=== PATIENT | female | born 1945 | race Caucasian/White ===

== ENCOUNTER 2021-03-17 14:00 | Outpatient (CLI) | payer MEDICARE, BC ==
[2021-03-18 18:02] LABS: SARS-CoV-2 PCR by NAA DETECTED (NotDetected)
== END 2021-03-17 14:01 | disposition home or self-care (01) ==
LOC: CSHLAB 14:00
PROVIDERS: ATTEND Family Medicine
DX: U07.1 COVID-19 (principal)
CPT/HCPCS: U0003; U0005

== ENCOUNTER 2021-03-20 13:34 | Outpatient (CLI) | payer MEDICARE, BC | END 2021-03-20 13:35 | disposition home or self-care (01) | LOC: CSHRAD 13:34 | PROVIDERS: ATTEND Family Medicine | DX: R13.10 Dysphagia, unspecified (principal); J44.9 Chronic obstructive pulmonary disease, unspecified; K21.9 Gastro-esophageal reflux disease without esophagitis | CPT/HCPCS: 74220 ==

== ENCOUNTER 2023-04-17 12:27 | Emergency (ER) | payer MEDICARE, BC ==
[2023-04-17 13:14] LABS: #Basophils 0.1 10x3/uL (0.0-0.2); #Monocytes 0.9 10x3/uL (0.0-1.1); #Neutrophils 9.6 10x3/uL (1.5-8.4); %Basophils 0.7 % (0.0-2.0); %Eosinophils 0.3 % (0.0-6.0); %Lymphocytes 17.2 % (18.0-47.0); %Monocytes 6.7 % (0.0-10.0); %Neutrophils 71.4 % (40.0-75.0); Hematocrit 33.4 % (34.9-44.5); Hemoglobin 10.3 g/dL (12.0-15.5); Mean Corpuscular HGB CONC 30.8 g/dL (32.0-36.0); Mean Corpuscular Hemoglobin 28.8 pg (27.0-33.0); Mean Corpuscular Volume 93.3 fl (81.6-98.3); Mean Platelet Volume 10.1 fl (7.4-10.4); Platelet Count 241 10x3/uL (150-450); RBC Distribution Width 17.3 % (11.5-14.5); Red Blood Cell (RBC) Count 3.58 10x6/uL (3.90-5.03); White Blood Cell (WBC) Count 13.4 10x3/uL (3.5-10.5)
[2023-04-17 13:17] LABS: Bilirubin Neg (Negative); Blood, Urine Negative (Negative); Clarity Clear (Clear); Glucose, Urine (Dipstick) >=1000 mg/dL (Negative); Ketone, Urine Negative (Negative); Leukocyte Negative (Negative); Nitrite Negative (Negative); Protein, Urine (Dipstick) Negative (Neg-Trace); Urobilinogen Normal mg/dL (Less than 2)
[2023-04-17 13:24] LABS: ALT (SGPT) 36 U/L (8-55); AST (SGOT) 18 U/L (5-34); Albumin 3.7 g/dL (3.4-4.8); Alkaline Phosphatase 49 U/L (40-110); Anion Gap 18 mmol/L (10-20); BUN (Urea Nitrogen) 13 mg/dL (9.8-20.1); Bilirubin, Total 0.2 mg/dL (0.2-1.2); Calc. Creatinine Clearance 0 mL/min (70-130); Calcium 10.4 mg/dL (7.8-10.44); Carbon Dioxide 21 mmol/L (23-31); Chloride 103 mmol/L (98-107); Estimated GFR 58; Globulin 2.5 g/dL (2.4-3.5); Glucose 156 mg/dL (83-110); Potassium 4.6 mmol/L (3.5-5.1); Protein, Total 6.2 g/dL (5.8-8.1); Sodium 137 mmol/L (136-145)
[2023-04-17 13:25] LABS: Troponin I 0.026 ng/mL (< 0.028)
[2023-04-17] MEDS ORDERED: Ondansetron PF 4 MG/2 ML Vial ONE (13:27)
[2023-04-17 13:38] LABS: SARS-CoV-2 NAA Rapid Test Not Detected (NotDetected)
[2023-04-17 13:38] LABS: Bacteria/HPF Rare-Few HPF (None Seen); CAUTI Indications for Culture Pelvic or flank pain; RBC/HPF 0-3 HPF (0-3); Squamous Epithelial 0-3 HPF (0-3); WBC/HPF 0-3 HPF (0-3)
[2023-04-17 13:41] LABS: Urine Culture Reflex No No
== END 2023-04-17 15:12 | disposition home or self-care (01) ==
LOC: CSHERS 12:27
DX: B34.9 Viral infection, unspecified (principal); I11.0 Hypertensive heart disease with heart failure; I50.9 Heart failure, unspecified
CPT/HCPCS: 0240U; 71045; 80053; 81001; 83605; 83880; 84484; 85025; 86140; 87040; 87086; 93005; 36415; 51701; 96374; J2405

== ENCOUNTER 2023-05-12 19:35 | Inpatient (IN) | payer MEDICARE, BC ==
[2023-05-12] MEDS ORDERED: Morphine 4 MG/ML VIAL ONE (19:56)
[2023-05-12] MEDS ORDERED: Ondansetron PF 4 MG/2 ML Vial ONE (19:57)
[2023-05-12 20:02] LABS: #Basophils 0.1 10x3/uL (0.0-0.2); #Monocytes 1.5 10x3/uL (0.0-1.1); #Neutrophils 13.1 10x3/uL (1.5-8.4); %Basophils 0.5 % (0.0-2.0); %Eosinophils 0.2 % (0.0-6.0); %Lymphocytes 11.6 % (18.0-47.0); %Monocytes 8.4 % (0.0-10.0); %Neutrophils 75.7 % (40.0-75.0); Hematocrit 34.6 % (34.9-44.5); Hemoglobin 11.3 g/dL (12.0-15.5); Mean Corpuscular HGB CONC 32.7 g/dL (32.0-36.0); Mean Corpuscular Hemoglobin 28.5 pg (27.0-33.0); Mean Corpuscular Volume 87.2 fl (81.6-98.3); Mean Platelet Volume 10.8 fl (7.4-10.4); Platelet Count 276 10x3/uL (150-450); RBC Distribution Width 16.3 % (11.5-14.5); Red Blood Cell (RBC) Count 3.97 10x6/uL (3.90-5.03); White Blood Cell (WBC) Count 17.3 10x3/uL (3.5-10.5)
[2023-05-12 20:20] LABS: ALT (SGPT) 111 U/L (8-55); AST (SGOT) 31 U/L (5-34); Albumin 3.9 g/dL (3.4-4.8); Alkaline Phosphatase 55 U/L (40-110); Anion Gap 19 mmol/L (10-20); BUN (Urea Nitrogen) 20 mg/dL (9.8-20.1); Bilirubin, Total 0.5 mg/dL (0.2-1.2); Calc. Creatinine Clearance 0 mL/min (70-130); Calcium 9.3 mg/dL (7.8-10.44); Carbon Dioxide 28 mmol/L (23-31); Chloride 88 mmol/L (98-107); Estimated GFR 61; Globulin 2.3 g/dL (2.4-3.5); Glucose 209 mg/dL (83-110); Lipase 24 U/L (8-78); Potassium 3.2 mmol/L (3.5-5.1); Protein, Total 6.2 g/dL (5.8-8.1); Sodium 132 mmol/L (136-145)
[2023-05-12 20:26] LABS: Troponin I 0.062 ng/mL (< 0.028)
[2023-05-12 20:46] LABS: SARS-CoV-2 NAA Rapid Test DETECTED (NotDetected)
[2023-05-12 22:07] LABS: Bilirubin Neg (Negative); Blood, Urine 25 (Negative); Clarity Clear (Clear); Glucose, Urine (Dipstick) 50 mg/dL (Negative); Ketone, Urine 5 mg/dL (Negative); Leukocyte Negative (Negative); Nitrite Negative (Negative); Protein, Urine (Dipstick) 30 mg/dl (Neg-Trace); Specific Gravity, Urine 1.015 (1.005-1.030); Urobilinogen Normal mg/dL (Less than 2)
[2023-05-12] MEDS ORDERED: cefTRIAXone (ROCEPHIN) 2 GM VIAL ONE (22:10)
[2023-05-12 22:28] LABS: Bacteria/HPF 1+ HPF (None Seen); CAUTI Indications for Culture Pelvic or flank pain; RBC/HPF 0-3 HPF (0-3); WBC/HPF 0-3 HPF (0-3)
[2023-05-12 22:30] LABS: Urine Culture Reflex No No
[2023-05-12] MEDS ORDERED: Communication Order-Pharmacy FS PRN (22:32)
[2023-05-12] MEDS ORDERED: Acetaminophen 325 MG TAB PO PRN (22:40)
[2023-05-12] MEDS ORDERED: Piperacillin/Tazobactam 3.375 GM in Sodium Chloride 0.9% 100 ML IVPB SCH (22:45)
[2023-05-12] MEDS ORDERED: Glucagon 1 MG/ML KIT IM PRN (22:55)
[2023-05-12] MEDS ORDERED: Dextrose 5% in Water 1,000 ML IV PRN (22:55)
[2023-05-12] MEDS ORDERED: HumaLOG 300 UNITS/3 ML VIAL SC PRN (22:55)
[2023-05-12] MEDS ORDERED: Dextrose 50% Abboject 50 ML SYRINGE SLOW IVP PRN (22:55)
[2023-05-12] MEDS ORDERED: Ipratropium/Albuterol 3 ML NEB NEB PRN (22:56)
[2023-05-12] MEDS: Sodium Chloride 0.9% 1,000 ML IV SCH (23:00)
[2023-05-12 23:14] LABS: Lactic Acid 2.6 mmol/L (0.5-2.2)
[2023-05-12] MEDS ORDERED: Arformoterol 15 MCG/2 ML NEB NEB SCH (23:30)
[2023-05-12] MEDS: Montelukast Sodium 10 mg Tablet PO SCH (23:51)
[2023-05-12] MEDS ORDERED: Potassium Chloride 20 MEQ TAB PO SCH (23:59)
[2023-05-12] MEDS ORDERED: Cefepime 2 GM in Sodium Chloride 0.9% 100 ML IVPB SCH (23:59)
[2023-05-12] MEDS ORDERED: VANCOMYCIN 1.75 GM/350 ML BAG 1.75 GM in Premix 1 BAG IVPB SCH (23:59)
[2023-05-13 00:07] LABS: Troponin I 0.054 ng/mL (< 0.028)
[2023-05-13 00:10] LABS: Legionella Urinary Ag Negative (Negative); Strep pneumo Urine Ag NEGATIVE (NEGATIVE)
[2023-05-13] MEDS: Cefepime 2 GM in Sodium Chloride 0.9% 100 ML IVPB SCH ×2 (00:21→12:32)
[2023-05-13] MEDS: Benzocaine/Menthol 1 LOZ LOZ PO PRN ×3 (00:24→16:19)
[2023-05-13] MEDS ORDERED: Ondansetron PF 4 MG/2 ML Vial IVP SCH (01:00)
[2023-05-13] MEDS ORDERED: Milk Of Magnesia 30 ML UDCUP PO SCH (01:00)
[2023-05-13 05:01] LABS: #Basophils 0.1 10x3/uL (0.0-0.2); #Monocytes 1.2 10x3/uL (0.0-1.1); %Basophils 0.6 % (0.0-2.0); %Eosinophils 0.2 % (0.0-6.0); %Lymphocytes 11.3 % (18.0-47.0); %Monocytes 9.4 % (0.0-10.0); %Neutrophils 74.4 % (40.0-75.0); Hematocrit 30.3 % (34.9-44.5); Hemoglobin 9.4 g/dL (12.0-15.5); Mean Corpuscular Hemoglobin 27.9 pg (27.0-33.0); Mean Corpuscular Volume 89.9 fl (81.6-98.3); Mean Platelet Volume 11.1 fl (7.4-10.4); Platelet Count 237 10x3/uL (150-450); RBC Distribution Width 16.6 % (11.5-14.5); Red Blood Cell (RBC) Count 3.37 10x6/uL (3.90-5.03); White Blood Cell (WBC) Count 12.2 10x3/uL (3.5-10.5)
[2023-05-13 05:18] LABS: Anion Gap 13 mmol/L (10-20); BUN (Urea Nitrogen) 14 mg/dL (9.8-20.1); Calc. Creatinine Clearance 94 mL/min (70-130); Carbon Dioxide 27 mmol/L (23-31); Chloride 97 mmol/L (98-107); Estimated GFR 88; Glucose 150 mg/dL (83-110); Potassium 2.9 mmol/L (3.5-5.1); Sodium 134 mmol/L (136-145)
[2023-05-13 05:29] LABS: Troponin I 0.062 ng/mL (< 0.028)
[2023-05-13] MEDS ORDERED: Arformoterol 15 MCG/2 ML NEB NEB SCH (06:30)
[2023-05-13] MEDS ORDERED: Budesonide 0.5 MG/2 ML NEB INH SCH (06:30)
[2023-05-13] MEDS ORDERED: Ondansetron PF 4 MG/2 ML Vial IVP PRN (08:10)
[2023-05-13] MEDS: Potassium Chloride 20 MEQ in Premix 1 BAG IVPB SCH ×2 (08:22→10:42)
[2023-05-13] MEDS ORDERED: Potassium Chloride 20 MEQ TAB PO SCH ×2 (09:30→17:00)
[2023-05-13] MEDS: Nystatin 500,000 UNITS/5 ML UDCUP SSW SCH ×4 (09:41→20:19)
[2023-05-13] MEDS: Gabapentin 100 MG CAP PO SCH ×3 (09:43→20:18)
[2023-05-13] MEDS: Amlodipine 10 MG TAB PO SCH (09:43)
[2023-05-13] MEDS: Metoprolol Tartrate 25 MG TAB PO SCH ×2 (09:44→20:40)
[2023-05-13] MEDS: metFORMIN 500 MG TAB PO SCH ×2 (09:44→16:18)
[2023-05-13] MEDS: Enoxaparin 40 MG (0.4 mL) SYRINGE SC SCH (09:44)
[2023-05-13] MEDS: Escitalopram Oxalate 10 mg Tablet PO SCH (09:44)
[2023-05-13] MEDS: Lantus 1000 UNITS/10 ML VIAL SC SCH (09:46)
[2023-05-13] MEDS ORDERED: Promethazine HCl 12.5 MG, Admixture Fee 1 EACH in Sodium Chloride 0.9% 50 ML IVPB PRN (11:58)
[2023-05-13] MEDS: NS 0.9% w/ 40 MEQ KCL 1,000 ML IV SCH (12:33)
[2023-05-13] MEDS: Sodium Chloride 0.9% 1,000 ML IV SCH (12:34)
[2023-05-13] MEDS ORDERED: Docusate 100 MG CAP PO PRN (13:01)
[2023-05-13] MEDS: Mometasone/Formoterol 60 PUFF AER INH SCH (19:40)
[2023-05-13] MEDS: Ventolin HFA Inhaler 60 PUFF INHALER INH PRN (19:40)
[2023-05-13] MEDS: Famotidine 20 MG TAB PO SCH (20:19)
[2023-05-13] MEDS: valACYclovir 500 MG TAB PO SCH (23:00)
[2023-05-13] MEDS ORDERED: Vancomycin 1.5 GRAM/300 ML BAG 1.5 GM in Premix 1 BAG IVPB SCH (23:59)
[2023-05-14] MEDS: Montelukast Sodium 10 mg Tablet PO SCH ×2 (01:07→22:56)
[2023-05-14 04:36] LABS: #Monocytes 1.1 10x3/uL (0.0-1.1); #Neutrophils 6.4 10x3/uL (1.5-8.4); %Basophils 0.4 % (0.0-2.0); %Eosinophils 0.4 % (0.0-6.0); %Monocytes 11.5 % (0.0-10.0); %Neutrophils 67.9 % (40.0-75.0); Hematocrit 25.6 % (34.9-44.5); Hemoglobin 8.2 g/dL (12.0-15.5); Mean Corpuscular Hemoglobin 29.2 pg (27.0-33.0); Mean Corpuscular Volume 91.1 fl (81.6-98.3); Mean Platelet Volume 10.7 fl (7.4-10.4); Platelet Count 215 10x3/uL (150-450); Red Blood Cell (RBC) Count 2.81 10x6/uL (3.90-5.03); White Blood Cell (WBC) Count 9.4 10x3/uL (3.5-10.5)
[2023-05-14 04:49] LABS: ALT (SGPT) 65 U/L (8-55); AST (SGOT) 19 U/L (5-34); Albumin 2.8 g/dL (3.4-4.8); Alkaline Phosphatase 81 U/L (40-110); Anion Gap 11 mmol/L (10-20); BUN (Urea Nitrogen) 8 mg/dL (9.8-20.1); Bilirubin, Total 0.3 mg/dL (0.2-1.2); Calc. Creatinine Clearance 103 mL/min (70-130); Calcium 8.2 mg/dL (7.8-10.44); Carbon Dioxide 23 mmol/L (23-31); Chloride 106 mmol/L (98-107); Estimated GFR 90; Globulin 2.1 g/dL (2.4-3.5); Glucose 111 mg/dL (83-110); Potassium 3.4 mmol/L (3.5-5.1); Protein, Total 4.9 g/dL (5.8-8.1); Sodium 137 mmol/L (136-145)
[2023-05-14 04:55] LABS: Troponin I 0.025 ng/mL (< 0.028)
[2023-05-14] MEDS: Sodium Chloride 0.9% 1,000 ML IV SCH ×2 (06:26→17:41)
[2023-05-14] MEDS: Benzocaine/Menthol 1 LOZ LOZ PO PRN (06:26)
[2023-05-14] MEDS: NS 0.9% w/ 40 MEQ KCL 1,000 ML IV SCH ×2 (07:06→13:51)
[2023-05-14] MEDS: Ventolin HFA Inhaler 60 PUFF INHALER INH PRN (07:25)
[2023-05-14] MEDS: Mometasone/Formoterol 60 PUFF AER INH SCH ×2 (07:25→19:48)
[2023-05-14] MEDS ORDERED: Potassium Chloride 20 MEQ TAB PO SCH (08:00)
[2023-05-14] MEDS: Enoxaparin 40 MG (0.4 mL) SYRINGE SC SCH (08:27)
[2023-05-14] MEDS: Metoprolol Tartrate 25 MG TAB PO SCH ×2 (08:28→22:56)
[2023-05-14] MEDS: Lantus 1000 UNITS/10 ML VIAL SC SCH ×2 (08:28→09:41)
[2023-05-14] MEDS: Amlodipine 10 MG TAB PO SCH (08:28)
[2023-05-14] MEDS: Nystatin 500,000 UNITS/5 ML UDCUP SSW SCH ×4 (08:28→22:57)
[2023-05-14] MEDS: Gabapentin 100 MG CAP PO SCH ×3 (08:28→22:57)
[2023-05-14] MEDS: Escitalopram Oxalate 10 mg Tablet PO SCH (08:28)
[2023-05-14] MEDS: metFORMIN 500 MG TAB PO SCH ×2 (08:28→16:58)
[2023-05-14] MEDS: valACYclovir 500 MG TAB PO SCH ×2 (09:41→22:56)
[2023-05-14] MEDS ORDERED: Bisacodyl 10 MG SUPP PR PRN (10:44)
[2023-05-14] MEDS ORDERED: Magnesium Citrate 300 ML BOT PO SCH (10:45)
[2023-05-14] MEDS ORDERED: Metoclopramide HCl 10 MG (2 mL) VIAL IVP SCH (11:15)
[2023-05-14] MEDS ORDERED: Bisacodyl 10 MG SUPP PR SCH (11:15)
[2023-05-14] MEDS ORDERED: Senokot S 8.6-50 MG TAB PO SCH (11:30)
[2023-05-14] MEDS ORDERED: Fleet Saline Enema 133 ML BOT PR SCH (17:00)
[2023-05-14] MEDS ORDERED: Lorazepam 2 MG/ML VIAL SLOW IVP SCH (17:15)
[2023-05-14] MEDS ORDERED: Acetaminophen 325 MG TAB PO PRN (17:21)
[2023-05-14] MEDS ORDERED: Lorazepam 1 MG TAB PO SCH (18:30)
[2023-05-14] MEDS ORDERED: Metoclopramide HCl 10 MG (2 mL) VIAL IVP PRN (20:15)
[2023-05-14] MEDS: Famotidine 20 MG TAB PO SCH (22:56)
[2023-05-14] MEDS: Senokot S 8.6-50 MG TAB PO SCH (23:14)
[2023-05-15 06:06] LABS: #Eosinphils 0.1 10x3/uL (0.0-0.5); #Monocytes 1.3 10x3/uL (0.0-1.1); #Neutrophils 5.8 10x3/uL (1.5-8.4); %Basophils 0.4 % (0.0-2.0); %Eosinophils 0.5 % (0.0-6.0); %Lymphocytes 17.7 % (18.0-47.0); %Monocytes 13.9 % (0.0-10.0); %Neutrophils 63.4 % (40.0-75.0); Hematocrit 25.4 % (34.9-44.5); Mean Corpuscular HGB CONC 31.5 g/dL (32.0-36.0); Mean Corpuscular Hemoglobin 29.2 pg (27.0-33.0); Mean Corpuscular Volume 92.7 fl (81.6-98.3); Mean Platelet Volume 10.9 fl (7.4-10.4); Platelet Count 233 10x3/uL (150-450); RBC Distribution Width 17.7 % (11.5-14.5); Red Blood Cell (RBC) Count 2.74 10x6/uL (3.90-5.03); White Blood Cell (WBC) Count 9.2 10x3/uL (3.5-10.5)
[2023-05-15] MEDS: NS 0.9% w/ 40 MEQ KCL 1,000 ML IV SCH ×3 (06:38→16:14)
[2023-05-15 06:49] LABS: Anion Gap 11 mmol/L (10-20); BUN (Urea Nitrogen) 7 mg/dL (9.8-20.1); Calc. Creatinine Clearance 115 mL/min (70-130); Calcium 8.1 mg/dL (7.8-10.44); Carbon Dioxide 22 mmol/L (23-31); Chloride 109 mmol/L (98-107); Estimated GFR 92; Glucose 108 mg/dL (83-110); Sodium 138 mmol/L (136-145)
[2023-05-15] MEDS: Amlodipine 10 MG TAB PO SCH (08:27)
[2023-05-15] MEDS: Nystatin 500,000 UNITS/5 ML UDCUP SSW SCH ×4 (08:27→22:01)
[2023-05-15] MEDS: Gabapentin 100 MG CAP PO SCH ×3 (08:27→21:55)
[2023-05-15] MEDS: Metoprolol Tartrate 25 MG TAB PO SCH ×2 (08:27→21:55)
[2023-05-15] MEDS: Enoxaparin 40 MG (0.4 mL) SYRINGE SC SCH (08:27)
[2023-05-15] MEDS: metFORMIN 500 MG TAB PO SCH ×2 (08:27→16:13)
[2023-05-15] MEDS: Escitalopram Oxalate 10 mg Tablet PO SCH (08:27)
[2023-05-15] MEDS: Lantus 1000 UNITS/10 ML VIAL SC SCH (08:28)
[2023-05-15] MEDS: Senokot S 8.6-50 MG TAB PO SCH ×2 (08:29→21:55)
[2023-05-15] MEDS: Mometasone/Formoterol 60 PUFF AER INH SCH ×2 (08:50→19:20)
[2023-05-15] MEDS: valACYclovir 500 MG TAB PO SCH ×2 (09:32→23:23)
[2023-05-15] MEDS: Sodium Chloride 0.9% 1,000 ML IV SCH ×2 (09:33→20:00)
[2023-05-15] MEDS ORDERED: Lorazepam 0.5 MG TAB PO SCH ×2 (10:00→18:00)
[2023-05-15] MEDS: oxyCODONE 5 MG TAB PO PRN (16:46)
[2023-05-15] MEDS: Famotidine 20 MG TAB PO SCH (21:55)
[2023-05-15] MEDS: Montelukast Sodium 10 mg Tablet PO SCH (23:24)
[2023-05-16 06:12] LABS: #Eosinphils 0.1 10x3/uL (0.0-0.5); #Monocytes 1.2 10x3/uL (0.0-1.1); #Neutrophils 5.1 10x3/uL (1.5-8.4); %Basophils 0.5 % (0.0-2.0); %Eosinophils 0.6 % (0.0-6.0); %Lymphocytes 18.9 % (18.0-47.0); %Monocytes 14.8 % (0.0-10.0); %Neutrophils 61.3 % (40.0-75.0); Hematocrit 26.1 % (34.9-44.5); Mean Corpuscular HGB CONC 30.7 g/dL (32.0-36.0); Mean Corpuscular Hemoglobin 28.4 pg (27.0-33.0); Mean Corpuscular Volume 92.6 fl (81.6-98.3); Mean Platelet Volume 10.5 fl (7.4-10.4); Platelet Count 244 10x3/uL (150-450); Red Blood Cell (RBC) Count 2.82 10x6/uL (3.90-5.03); White Blood Cell (WBC) Count 8.3 10x3/uL (3.5-10.5)
[2023-05-16 06:18] LABS: Anion Gap 10 mmol/L (10-20); BUN (Urea Nitrogen) 5 mg/dL (9.8-20.1); Calc. Creatinine Clearance 115 mL/min (70-130); Calcium 8.2 mg/dL (7.8-10.44); Carbon Dioxide 24 mmol/L (23-31); Chloride 109 mmol/L (98-107); Estimated GFR 92; Glucose 107 mg/dL (83-110); Potassium 4.1 mmol/L (3.5-5.1); Sodium 139 mmol/L (136-145)
[2023-05-16] MEDS: NS 0.9% w/ 40 MEQ KCL 1,000 ML IV SCH (07:26)
[2023-05-16] MEDS: Mometasone/Formoterol 60 PUFF AER INH SCH (07:55)
[2023-05-16] MEDS: Senokot S 8.6-50 MG TAB PO SCH (08:20)
[2023-05-16] MEDS: Nystatin 500,000 UNITS/5 ML UDCUP SSW SCH ×2 (08:21→13:41)
[2023-05-16] MEDS: Escitalopram Oxalate 10 mg Tablet PO SCH (08:21)
[2023-05-16] MEDS: metFORMIN 500 MG TAB PO SCH (08:21)
[2023-05-16] MEDS: Enoxaparin 40 MG (0.4 mL) SYRINGE SC SCH (08:21)
[2023-05-16] MEDS: Gabapentin 100 MG CAP PO SCH ×2 (08:21→15:24)
[2023-05-16] MEDS: Amlodipine 10 MG TAB PO SCH (08:21)
[2023-05-16] MEDS: Metoprolol Tartrate 25 MG TAB PO SCH (08:21)
[2023-05-16] MEDS: Lantus 1000 UNITS/10 ML VIAL SC SCH (08:21)
[2023-05-16] MEDS: Sodium Chloride 0.9% 1,000 ML IV SCH (08:22)
[2023-05-16 09:24] VITALS: BMI 37.8
[2023-05-16] MEDS: valACYclovir 500 MG TAB PO SCH (10:39)
[2023-05-16 12:55] VITALS: BP 126/59; TEMP 98.1
[2023-05-16] MEDS: oxyCODONE 5 MG TAB PO PRN (13:41)
== END 2023-05-16 16:37 | DRG 871 ==
LOC: CSHERS 19:35 → CSHTELE 23:15
PROVIDERS: ADMIT Family Medicine; ATTEND Family Medicine
PROC: 3E03329 Introduction of Other Anti-infective into Peripheral Vein, Percutaneous Approach (ICD-10-PCS; 2023-05-12)
PROC: 8E0ZXY6 Isolation (ICD-10-PCS; 2023-05-12)
PROC: 5A09357 Assistance with Respiratory Ventilation, Less than 24 Consecutive Hours, Continuous Positive Airway Pressure (ICD-10-PCS; principal; 2023-05-13)
DX: A41.9 Sepsis, unspecified organism (principal); U07.1 COVID-19; J96.11 Chronic respiratory failure with hypoxia; I50.32 Chronic diastolic (congestive) heart failure; B37.0 Candidal stomatitis; E87.20 Acidosis, unspecified; J43.9 Emphysema, unspecified; E66.01 Morbid (severe) obesity due to excess calories; E11.9 Type 2 diabetes mellitus without complications; G47.33 Obstructive sleep apnea (adult) (pediatric); I11.0 Hypertensive heart disease with heart failure; Z66 Do not resuscitate; R65.20 Severe sepsis without septic shock; E87.6 Hypokalemia; E86.0 Dehydration; B00.1 Herpesviral vesicular dermatitis; K59.00 Constipation, unspecified; Z90.49 Acquired absence of other specified parts of digestive tract; Z88.5 Allergy status to narcotic agent; Z68.37 Body mass index [BMI] 37.0-37.9, adult; Z88.8 Allergy status to other drugs, medicaments and biological substances; Z79.899 Other long term (current) drug therapy; Z79.84 Long term (current) use of oral hypoglycemic drugs; Z79.4 Long term (current) use of insulin; Z87.891 Personal history of nicotine dependence; Z98.890 Other specified postprocedural states
CPT/HCPCS: 36415; 36416; 71045; 74018; 74177; 80048; 80053; 81001; 83605; 83690; 83735; 84145; 84484; 85025; 87040; 87081; 87449; 87633; 87899; 89220; 93005; 93010; 94640; 94660; 94760; J0692; J0696; J1650; J1815; J2060; J2270; J2405; J2550; J2765; J3370; J3480; J3490; J7050; J7620

== ENCOUNTER 2023-05-21 08:25 | Emergency (ER) | payer BC, MEDICARE ==
[2023-05-21 09:15] LABS: #Basophils 0.1 10x3/uL (0.0-0.2); #Eosinphils 0.1 10x3/uL (0.0-0.5); #Monocytes 0.7 10x3/uL (0.0-1.1); #Neutrophils 5.5 10x3/uL (1.5-8.4); %Basophils 0.9 % (0.0-2.0); %Eosinophils 1.3 % (0.0-6.0); %Lymphocytes 17.8 % (18.0-47.0); %Monocytes 9.2 % (0.0-10.0); %Neutrophils 69.8 % (40.0-75.0); Hematocrit 30.4 % (34.9-44.5); Hemoglobin 9.6 g/dL (12.0-15.5); Mean Corpuscular HGB CONC 31.6 g/dL (32.0-36.0); Mean Corpuscular Hemoglobin 28.7 pg (27.0-33.0); Mean Platelet Volume 9.3 fl (7.4-10.4); Platelet Count 294 10x3/uL (150-450); RBC Distribution Width 18.6 % (11.5-14.5); Red Blood Cell (RBC) Count 3.34 10x6/uL (3.90-5.03); White Blood Cell (WBC) Count 7.8 10x3/uL (3.5-10.5)
[2023-05-21] MEDS ORDERED: Famotidine/PF 20 mg/2ml Vial ONE (10:15)
[2023-05-21] MEDS ORDERED: Metoclopramide HCl 10 MG (2 mL) VIAL ONE (10:15)
[2023-05-21 10:46] LABS: ALT (SGPT) 40 U/L (8-55); AST (SGOT) 16 U/L (5-34); Albumin 3.2 g/dL (3.4-4.8); Alkaline Phosphatase 67 U/L (40-110); Anion Gap 16 mmol/L (10-20); BUN (Urea Nitrogen) 6 mg/dL (9.8-20.1); Bilirubin, Total 0.3 mg/dL (0.2-1.2); Calc. Creatinine Clearance 0 mL/min (70-130); Calcium 8.6 mg/dL (7.8-10.44); Carbon Dioxide 29 mmol/L (23-31); Chloride 97 mmol/L (98-107); Estimated GFR 64; Globulin 2.8 g/dL (2.4-3.5); Glucose 126 mg/dL (83-110); Lipase 10 U/L (8-78); Magnesium 1.1 mg/dL (1.6-2.6); Sodium 139 mmol/L (136-145)
[2023-05-21] MEDS ORDERED: Magnesium 2 GM/50 ML BAG (IN WATER) ONE (11:20)
[2023-05-21] MEDS ORDERED: Potassium Chloride 20 MEQ TAB ONE (11:20)
[2023-05-21] MEDS ORDERED: Iopamidol 300 61% 100 ML VIAL FS ONE (11:26)
[2023-05-21] MEDS ORDERED: Potassium Chloride 20 MEQ (100 mL) BAG ONE (12:08)
[2023-05-21] MEDS ORDERED: Potassium Chloride 10 MEQ in Premix 1 BAG IVPB SCH (12:15)
== END 2023-05-21 13:20 | disposition home or self-care (01) ==
LOC: CSHERS 08:25
DX: R11.2 Nausea with vomiting, unspecified (principal); E87.6 Hypokalemia; E83.42 Hypomagnesemia; I11.0 Hypertensive heart disease with heart failure; I50.9 Heart failure, unspecified
CPT/HCPCS: 36415; 74177; 80053; 83690; 83735; 85025; 93005; 96374; 96375; J2765; J3475; J3480; Q9967; S0028